=== PATIENT | female | born 1985 | race Caucasian/White ===

== ENCOUNTER 2018-09-28 10:54 | Outpatient (CLI) | payer BC ==
[2018-09-28 11:54] LABS: ADD UMIC YES; UR ASCORBIC ACID NEGATIVE (NEGATIVE); UR BILIRUBIN (Dip) NEGATIVE (NEGATIVE); UR BLOOD (Dip) NEGATIVE (NEGATIVE); UR CLARITY CLOUDY (CLEAR); UR COLOR YELLOW (YELLOW); UR GLUCOSE (Dip) NEGATIVE (NEGATIVE); UR KETONES (Dip) NEGATIVE (NEGATIVE); UR LEUKOCYTE ESTERASE (Dip) NEGATIVE Leu/ul (NEGATIVE); UR MUCUS FEW /HPF (NONE SEEN); UR NITRITE (Dip) NEGATIVE (NEGATIVE); UR RBC 0 /HPF (0-5); UR SPECIFIC GRAVITY (Dip) 1.018 (1.003-1.030); UR SQUAMOUS EPITHELIAL CELL MODERATE /HPF (FEW); UR TOTAL PROTEIN (Dip) NEGATIVE (NEGATIVE); UR UROBILINOGEN (Dip) 1+ mg/dL (NEGATIVE); UR WBC 3 /HPF (0-5)
== END 2018-09-28 13:00 | disposition home or self-care (01) ==
LOC: OBT 10:54 → L-D 10:54 → OBT 13:00
DX: O26.893 Other specified pregnancy related conditions, third trimester (principal); Z3A.33 33 weeks gestation of pregnancy; R10.2 Pelvic and perineal pain
CPT/HCPCS: 76818; 81001

== ENCOUNTER 2018-11-04 15:59 | Inpatient (IN) | payer OTHER, BC ==
[2018-11-04] MEDS ORDERED: MISOPROSTOL 200 MCG TAB PR ×2 (17:00→22:00)
[2018-11-04] MEDS ORDERED: METHYLERGONOVINE 0.2 MG INJ IM ×2 (17:00→22:00)
[2018-11-04] MEDS: LACTATED RINGER'S 1,000 ML IV (17:00)
[2018-11-04] MEDS ORDERED: CARBOPROST 250 MCG INJ IM ×2 (17:00→22:00)
[2018-11-04 17:19] LABS: ADD MAN DIFF? NO
[2018-11-04 17:21] LABS: WHITE BLOOD COUNT 10.3 10^3/ul (4.8-10.8)
[2018-11-04 17:21] LABS: BASOPHILS % 0.3 % (0.0-2.0); EOSINOPHILS % 0.4 % (0.0-7.0); HEMATOCRIT 36.5 % (37.0-47.0); LYMPHOCYTES # 1.7 10^3/ul (0.8-2.9); LYMPHOCYTES % 16.9 % (15.0-51.0); MEAN CORPUSCULAR HEMOGLOBIN 27.5 pg (29.0-33.0); MEAN CORPUSCULAR HGB CONC 32.9 g/dl (32.0-37.0); MEAN CORPUSCULAR VOLUME 83.5 fl (82.0-101.0); MEAN PLATELET VOLUME 10.1 fl (7.4-10.4); MONOCYTE # 0.7 10^3/ul (0.3-0.9); MONOCYTES % 6.9 % (0.0-11.0); NEUTROPHIL # 7.7 10^3/ul (1.6-7.5); NEUTROPHILS % 74.9 % (39.0-77.0); PLATELET COUNT 285 10^3/UL (140-415); RED BLOOD COUNT 4.37 10^6/ul (4.20-5.40); RED CELL DISTRIBUTION WIDTH 15.4 % (11.5-14.5)
[2018-11-04 17:41] LABS: INR 0.84; PROTIME 11.6 Sec (11.9-14.9); PT RATIO 0.9
[2018-11-04 17:42] LABS: PARTIAL THROMBOPLASTIN TIME 25.2 Sec (23.0-35.0)
[2018-11-04] MEDS ORDERED: morphine SULFATE/PF (10 MG/10 ML) INJ (17:59)
[2018-11-04] MEDS ORDERED: ONDANSETRON 4 MG INJ (17:59)
[2018-11-04] MEDS ORDERED: METOCLOPRAMIDE 10 MG INJ (17:59)
[2018-11-04] MEDS ORDERED: KETOROLAC 30 MG INJ (18:00)
[2018-11-04 18:09] LABS: HEPATITIS B SURFACE ANTIGEN NEGATIVE (NEGATIVE)
[2018-11-04] MEDS ORDERED: CEFAZOLIN 1 GM INJ (18:09)
[2018-11-04] MEDS ORDERED: EPHEDrine 25 MG/5 ML SYG (18:25)
[2018-11-04] MEDS ORDERED: PHENYLephrine (100 MCG/ML) 5ML SYG (18:26)
[2018-11-04] MEDS ORDERED: FENTAnyl 50 MCG/ML VIAL (18:36)
[2018-11-04] MEDS ORDERED: LACTATED RINGER'S 1,000 ML IV (19:00)
[2018-11-04] MEDS ORDERED: morphine 2 MG INJ IV ×3 (19:30)
[2018-11-04] MEDS ORDERED: ONDANSETRON 4 MG INJ IV (19:30)
[2018-11-04] MEDS ORDERED: EPHEDrine SULFATE 50 MG/5 ML SYG IV (19:30)
[2018-11-04] MEDS ORDERED: NALOXONE (0.4 MG/ML) INJ IV (19:30)
[2018-11-04] MEDS ORDERED: morphine (1 MG/ML) 10ML SYRINGE IV ×3 (19:30)
[2018-11-04] MEDS ORDERED: DIPHENHYDRAMINE 50 MG INJ IV (19:30)
[2018-11-04] MEDS: KETOROLAC 30 MG INJ IV (20:28)
[2018-11-04] MEDS: OXYTOCIN 30 UNITS/LR 500 ML IV (20:48)
[2018-11-04] MEDS: IBUPROFEN 800 MG TAB PO (22:00)
[2018-11-04] MEDS ORDERED: OXYTOCIN 30 UNITS/LR 500 ML IV (22:00)
[2018-11-04] MEDS ORDERED: OXYCODONE/ACETAMINOPHEN (5/325) TAB PO (22:00)
[2018-11-04] MEDS: ONDANSETRON 4 MG INJ IV (23:13)
[2018-11-04] MEDS: CEFAZOLIN 2 GM/50 ML (PMX) 50 ML IVPB (23:23)
[2018-11-05] MEDS: OXYTOCIN 30 UNITS/LR 500 ML IV (00:54)
[2018-11-05] MEDS: DIPHENHYDRAMINE 50 MG INJ IV (00:59)
[2018-11-05] MEDS: LANOLIN HPA 1 PKT TOP ×2 (00:59→08:41)
[2018-11-05] MEDS: IBUPROFEN 800 MG TAB PO ×3 (06:00→21:38)
[2018-11-05] MEDS: LACTATED RINGER'S 1,000 ML IV (08:41)
[2018-11-05] MEDS: SENNA/DOCUSATE NA (8.6MG/50MG) TAB PO ×2 (08:41→20:44)
[2018-11-05] MEDS: KETOROLAC 30 MG INJ IV ×2 (08:44→17:32)
[2018-11-05 08:52] LABS: ADD MAN DIFF? NO
[2018-11-05 09:26] LABS: BASOPHILS % 0.1 % (0.0-2.0); EOSINOPHILS % 0.1 % (0.0-7.0); HEMATOCRIT 30.5 % (37.0-47.0); HEMOGLOBIN 10.1 g/dl (12.0-16.0); LYMPHOCYTES # 1.3 10^3/ul (0.8-2.9); LYMPHOCYTES % 12.3 % (15.0-51.0); MEAN CORPUSCULAR HEMOGLOBIN 27.8 pg (29.0-33.0); MEAN CORPUSCULAR HGB CONC 33.1 g/dl (32.0-37.0); MEAN PLATELET VOLUME 10.1 fl (7.4-10.4); MONOCYTES % 9.3 % (0.0-11.0); NEUTROPHILS % 77.7 % (39.0-77.0); PLATELET COUNT 247 10^3/UL (140-415); RED BLOOD COUNT 3.63 10^6/ul (4.20-5.40); RED CELL DISTRIBUTION WIDTH 15.6 % (11.5-14.5)
[2018-11-05 09:26] LABS: WHITE BLOOD COUNT 10.3 10^3/ul (4.8-10.8)
[2018-11-05 15:44] LABS: RAPID PLASMA REAGIN NONREACTIVE (NR)
[2018-11-05] MEDS: HYDROCODONE/APAP (5/325) TAB PO (20:44)
[2018-11-06] MEDS: IBUPROFEN 800 MG TAB PO ×3 (05:38→22:02)
[2018-11-06] MEDS: SENNA/DOCUSATE NA (8.6MG/50MG) TAB PO ×2 (09:27→20:41)
[2018-11-06] MEDS: HYDROCODONE/APAP (5/325) TAB PO ×2 (09:36→16:43)
[2018-11-06] MEDS: OXYCODONE/ACETAMINOPHEN (5/325) TAB PO (20:41)
[2018-11-07] MEDS: IBUPROFEN 800 MG TAB PO ×2 (05:49→14:15)
[2018-11-07] MEDS: SENNA/DOCUSATE NA (8.6MG/50MG) TAB PO (09:50)
[2018-11-07] MEDS: MEASLES,MUMPS,RUBELLA VACCINE INJ SC* (09:51)
[2018-11-07] MEDS: DIPHTH/TET/ACEL PERTUSS (ADULT) 0.5 ML VIAL IM* (09:51)
[2018-11-07] MEDS: NA PHOSPHATE/BIPHOS 133 ML ENEMA PR (09:56)
[2018-11-07] MEDS: HYDROCODONE/APAP (5/325) TAB PO (12:20)
[2018-11-07] MEDS ORDERED: MEASLES,MUMPS,RUBELLA VACCINE INJ SC* (17:00)
== END 2018-11-07 15:00 | disposition home or self-care (01) | DRG 788 ==
LOC: OBT 15:59 → L-D 16:01 → OBT 16:40 → L-D 16:40 → PP1 22:06
PROVIDERS: Obstetrics & Gynecology
PROC: 10D00Z1 Extraction of Products of Conception, Low, Open Approach (ICD-10-PCS; principal; 2018-11-04 18:00)
DX: O34.219 Maternal care for unspecified type scar from previous cesarean delivery (principal); G89.18 Other acute postprocedural pain; O90.81 Anemia of the puerperium; Z3A.38 38 weeks gestation of pregnancy; Z37.0 Single live birth; Z23 Encounter for immunization
CPT/HCPCS: 76818; 85025; 85610; 85730; 86592; 86850; 86900; 86901; 87340; 99464

== ENCOUNTER 2019-07-19 12:48 | Observation (INO) | payer BC, OTHER ==
[2019-07-19 13:18] LABS: ADD MAN DIFF? NO
[2019-07-19 13:21] LABS: BASOPHILS % 0.3 % (0.0-2.0); EOSINOPHILS # 0.1 10^3/ul (0.0-0.5); EOSINOPHILS % 0.9 % (0.0-7.0); HEMATOCRIT 36.2 % (37.0-47.0); HEMOGLOBIN 11.8 g/dl (12.0-16.0); LYMPHOCYTES # 1.8 10^3/ul (0.8-2.9); LYMPHOCYTES % 19.8 % (15.0-51.0); MEAN CORPUSCULAR HEMOGLOBIN 27.8 pg (29.0-33.0); MEAN CORPUSCULAR HGB CONC 32.6 g/dl (32.0-37.0); MEAN CORPUSCULAR VOLUME 85.4 fl (82.0-101.0); MEAN PLATELET VOLUME 9.7 fl (7.4-10.4); MONOCYTES % 10.5 % (0.0-11.0); NEUTROPHIL # 6.1 10^3/ul (1.6-7.5); NEUTROPHILS % 68.1 % (39.0-77.0); PLATELET COUNT 265 10^3/UL (140-415); RED BLOOD COUNT 4.24 10^6/ul (4.20-5.40); RED CELL DISTRIBUTION WIDTH 12.7 % (11.5-14.5)
[2019-07-19] MEDS: KETOROLAC 30 MG INJ IV (14:15)
[2019-07-19 14:33] LABS: ADD UMIC YES; UR ASCORBIC ACID NEGATIVE (NEGATIVE); UR BACTERIA FEW /HPF (NONE SEEN); UR BILIRUBIN (Dip) NEGATIVE (NEGATIVE); UR BLOOD (Dip) 2+ mg/dL (NEGATIVE); UR CLARITY CLEAR (CLEAR); UR COLOR STRAW (YELLOW); UR GLUCOSE (Dip) NEGATIVE (NEGATIVE); UR KETONES (Dip) NEGATIVE (NEGATIVE); UR LEUKOCYTE ESTERASE (Dip) NEGATIVE Leu/ul (NEGATIVE); UR NITRITE (Dip) NEGATIVE (NEGATIVE); UR RBC 85 /HPF (0-5); UR SPECIFIC GRAVITY (Dip) 1.005 (1.003-1.030); UR TOTAL PROTEIN (Dip) NEGATIVE (NEGATIVE); UR UROBILINOGEN (Dip) NEGATIVE (NEGATIVE); UR WBC 2 /HPF (0-5)
[2019-07-19] MEDS ORDERED: CEFAZOLIN 2 GM/50 ML (PMX) 50 ML IVPB (19:00)
[2019-07-19] MEDS ORDERED: FENTAnyl 50 MCG/ML VIAL (19:25)
[2019-07-19] MEDS ORDERED: PROPOFOL 20 ML (19:25)
[2019-07-19] MEDS ORDERED: DEXAMETHASONE 4 MG/ML 5 ML INJ (19:28)
[2019-07-19] MEDS ORDERED: ONDANSETRON 4 MG INJ (19:28)
[2019-07-19] MEDS ORDERED: LIDOCAINE 2% (SDV) 5 ML INJ (19:29)
[2019-07-19] MEDS ORDERED: CEFAZOLIN 1 GM INJ (19:44)
[2019-07-19] MEDS ORDERED: OXYTOCIN 10 UNIT INJ (19:58)
[2019-07-19] MEDS ORDERED: MEPERIDINE 25 MG INJ (20:13)
[2019-07-19] MEDS: MEPERIDINE 25 MG INJ IV (20:26)
[2019-07-19] MEDS ORDERED: DIPHENHYDRAMINE 50 MG INJ IV (20:30)
[2019-07-19] MEDS ORDERED: FENTAnyl 50 MCG/ML VIAL IV ×3 (20:30)
[2019-07-19] MEDS ORDERED: hydrALAzine 20 MG INJ IV (20:30)
[2019-07-19] MEDS ORDERED: LABETALOL HCL 20MG INJ IV (20:30)
[2019-07-19] MEDS ORDERED: EPHEDrine 25 MG/5 ML SYG IV (20:30)
[2019-07-19] MEDS ORDERED: ALBUTEROL 0.083% (NEB) 2.5 MG/3 ML AMP HHN (20:30)
[2019-07-19] MEDS ORDERED: METOCLOPRAMIDE 10 MG INJ IV (20:30)
[2019-07-19] MEDS ORDERED: ONDANSETRON 4 MG INJ IV (20:30)
[2019-07-19] MEDS ORDERED: KETOROLAC 30 MG INJ IV (20:30)
== END 2019-07-19 21:15 | disposition home or self-care (01) ==
LOC: E/R 12:48 → REC 19:13
PROVIDERS: Obstetrics & Gynecology
DX: O03.4 Incomplete spontaneous abortion without complication (principal)
CPT/HCPCS: 36415; 76801; 81001; 84702; 85025; 88305; 96374; 99217; 99285-25